=== PATIENT | male | born 1955 | race African-American/Black ===

== ENCOUNTER 2018-10-24 21:37 | Emergency (ER) | payer OTHER ==
[~2018-10-24] VITALS: Ht 188 cm; Wt 96.2 kg
[~2018-10-24 21:37] MED LIST: ALBU1.257; ASMANEX; NOR10T; PROVENTIL HFA; TIOTCAP
[2018-10-24] MEDS ORDERED: methylPREDNISolone SOD SUCC 125 MG/2 ML VL IV ONE (22:00)
[2018-10-24] MEDS ORDERED: LORazepam 2MG/ML-1ML VIAL IV ONE (22:00)
[2018-10-24] MEDS ORDERED: IPRATROPIUM BROM 0.5 MG/2.5ML INH SOL HHN ONE ×2 (22:00→23:15)
[2018-10-24] MEDS ORDERED: SODIUM CHLORIDE 0.9% 500 ML IV ONE (22:00)
[2018-10-24] MEDS ORDERED: ALBUTEROL SULF 2.5 MG/0.5ML(0.5%) NEB SOLN HHN ONE ×2 (22:00→23:15)
[2018-10-25 00:45] VITALS: BP 175/98
== END 2018-10-25 02:53 | disposition home or self-care (01) ==
LOC: ER 21:42
DX: J45.909 Unspecified asthma, uncomplicated (principal)
CPT/HCPCS: 71045; 94640; 94761; 96374; 96375; 99284; J2060; J2930; J7040; J7611; J7644